=== PATIENT | male | born 1950 | race Asian ===

== ENCOUNTER → 2017-12-21 | Outpatient (CLI) | payer OTHER ==
[~2017-12-21] MED LIST: FLEXERIL10 MG PO; MOTRIN800 MG PO
== END | disposition home or self-care (01) ==
DX: R13.14 Dysphagia, pharyngoesophageal phase (principal); K21.9 Gastro-esophageal reflux disease without esophagitis
CPT/HCPCS: 92611 GN; G8996 GN; G8997 GN; G8998 GN